=== PATIENT | male | born 1945 | race Caucasian/White ===

== ENCOUNTER 2017-01-28 09:47 | Inpatient (IN) | payer OTHER ==
[~2017-01-28] VITALS: Ht 172.7 cm; Wt 101.3 kg
[~2017-01-28 09:47] MED LIST: ADVAIR HFA120 INHALA IH; AMARYL2 MG PO; AMBIEN10 MG PO; AMLODIPINE BESY10 MG PO; BYSTOLIC10 MG PO; CLONIDINE HCL0.1 MG PO; CLONIDINE HCL0.2 MG PO; COUMADIN,JANTO2.5 MG PO; DOCUSATE SODIU100 MG PO; DUONEB 2.5-0.5 M3 ML AEROSOL; EFFEXOR75 MG PO; FINASTERIDE5 MG PO; FLOMAX0.4 MG PO; GLUCOPHAGE500 MG PO; HUMALOG MI100 UNIT/1 SC; HUMALOG100 UNIT/2 SC; LISINOPRIL10 MG PO; LISINOPRIL20 MG PO; LO-DOSE ASPIRIN81 M1 PO; LOPRESSOR50 MG PO; LYRICA100 MG PO; LYRICA75 MG PO; METFORMIN HCL500 MG PO; MORPHINE SULFAT30 M2 PO; NORVASC10 MG PO; OPANA ER20 MG PO; PANTOPRAZOLE SO40 MG PO; PERCOCET 10/1 TABLET PO; PLAVIX75 MG PO; PROSCAR5 MG PO; TYLENOL EXTRA500 MG PO; VENLAFAXINE HC150 M1 PO
[2017-01-28] MEDS ORDERED: CLONIDINE HCL0.2 MG PO (10:00)
[2017-01-28] MEDS ORDERED: LISINOPRIL20 MG PO (10:00)
[2017-01-28 10:44] LABS: ADD MIUA? YES; BILIRUBIN NEGATIVE; BLOOD MODERATE; COLOR YELLOW ((YELLOW)); GLUCOSE (STRIP) 150; KETONES NEGATIVE; LEUKOCYTES NEGATIVE; NITRITE NEGATIVE; PROTEIN (STRIP) >=500; SPECIFIC GRAVITY 1.015 (1.000-1.030); UROBILINOGEN 0.2 MG/DL (0.2-1.0)
[2017-01-28 10:48] LABS: BASOPHIL COUNT 0.1 K/uL (0-0.1); EOSINOPHIL (%) 0.3 % (0-5); HEMATOCRIT 41.4 % (38.0-50.0); IMMATURE GRANULOCYTE (%) 0.5 % (0.0-0.7); IMMATURE GRANULOCYTE COUNT 0.1 K/uL; INSTRUMENT ABS NEUTROPHIL CT 9.3 K/uL; LYMPHOCYTE COUNT 1.8 K/uL (1.0-2.8); MCHC 33.6 G/DL (30.0-36.0); MCV 89.2 FL (86-99); MEAN PLAT.VOLUME 10.6 uM^3 (9.0-12.4); MONOCYTE (%) 6.3 % (3-12); MONOCYTE COUNT 0.8 K/uL (0-0.8); NEUTROPHIL (%) 77.7 % (45-76); NEUTROPHIL COUNT 9.3 K/uL (1.8-6.4); PLATELET COUNT 256 K/uL (156-360); RBC DIS.WIDTH-CV 13.1 % (11.8-14.6); RBC DIS.WIDTH-SD 43.1 % (39-53); RED BLOOD COUNT 4.64 M/uL (4.00-5.50)
[2017-01-28 10:56] LABS: CHLORIDE 104 mEq/L (99-109); POTASSIUM 4.9 mEq/L (3.7-5.4); SODIUM 134 mEq/L (136-147)
[2017-01-28 10:58] LABS: BACTERIA NONE SEEN /HPF; CRYSTALS PRESENT; EPITHELIAL CELLS NONE SEEN /HPF; GLUCOSE 233 mg/dL (70-99); MUCUS NONE SEEN /LPF; RED BLOOD CELLS RARE /HPF (0-5); UCUL ADDED? NO; WHITE BLOOD CELLS NONE SEEN /HPF (0-5)
[2017-01-28 10:59] LABS: AMORPHOUS URATES CRYSTALS 3+; ANION GAP 11 MEQ/L (2-14)
[2017-01-28 11:00] LABS: TOTAL BILIRUBIN 0.6 mg/dL (0.0-1.0)
[2017-01-28 11:02] LABS: ALKALINE PHOSPHATASE 109 IU/L (3-129); GFR ESTIMATE (CALCULATED) 28 mL/min/
[2017-01-28 11:03] LABS: UREA NITROGEN (BUN) 38 mg/dL (9-23)
[2017-01-28 11:05] LABS: LIPASE 7 U/L (1.0-51.0)
[2017-01-28 11:08] LABS: TROP-I INTERPRETATION NEGATIVE; TROPONIN-I 0.02 ng/mL (0.0-0.30)
[2017-01-28 14:42] LABS: POINT-OF-CARE METER ID UU13113702
[2017-01-28] MEDS ORDERED: AMBIEN5 MG PO (15:37)
[2017-01-28] MEDS ORDERED: BYSTOLIC10 MG PO (15:38)
[2017-01-28] MEDS ORDERED: COLACE100 MG PO (15:41)
[2017-01-28] MEDS ORDERED: CATAPRES0.1 MG PO (15:42)
[2017-01-28 16:32] VITALS: BP 178/75
[2017-01-28 16:50] LABS: POINT-OF-CARE METER ID UU13113725
[2017-01-28 21:11] LABS: POINT-OF-CARE METER ID UU13113725
[2017-01-28 23:14] VITALS: BP 181/72
[2017-01-29 07:13] LABS: HEMATOCRIT 43.2 % (38.0-50.0); MCHC 33.1 G/DL (30.0-36.0); MCV 90.6 FL (86-99); MEAN PLAT.VOLUME 10.9 uM^3 (9.0-12.4); PLATELET COUNT 247 K/uL (156-360); RBC DIS.WIDTH-CV 13.2 % (11.8-14.6); RBC DIS.WIDTH-SD 43.8 % (39-53); RED BLOOD COUNT 4.77 M/uL (4.00-5.50); WHITE BLOOD COUNT 9.2 K/uL (4.1-10.2)
[2017-01-29 07:21] VITALS: BP 172/81
[2017-01-29 07:28] LABS: ANION GAP 10 MEQ/L (2-14); CHLORIDE 107 MEQ/L (99-109); GFR ESTIMATE (CALCULATED) 42 mL/min/; GLUCOSE 277 mg/dL (70-99); POTASSIUM 4.8 MEQ/L (3.7-5.4); SAMPLE HEMOLYSIS CHECK 0; SAMPLE ICTERIC CHECK 0; SAMPLE LIPEMIA CHECK 0; SODIUM 138 MEQ/L (136-147); UREA NITROGEN (BUN) 32 mg/dL (9-23)
[2017-01-29 15:44] VITALS: BP 164/78
[2017-01-29 23:55] VITALS: BP 151/63
[2017-01-30 07:52] VITALS: BP 178/80
[2017-01-30 15:00] VITALS: BP 143/64
[2017-01-30 23:11] VITALS: BP 128/53
[2017-01-31 06:55] LABS: HEMATOCRIT 37.8 % (38.0-50.0); MCH 30.5 PG (29.0-34.0); MCHC 33.1 G/DL (30.0-36.0); MCV 92.2 FL (86-99); MEAN PLAT.VOLUME 10.9 uM^3 (9.0-12.4); PLATELET COUNT 219 K/uL (156-360); RBC DIS.WIDTH-CV 13.2 % (11.8-14.6); WHITE BLOOD COUNT 6.7 K/uL (4.1-10.2)
[2017-01-31 07:24] LABS: ANION GAP 9 MEQ/L (2-14); CHLORIDE 107 MEQ/L (99-109); POTASSIUM 5.3 MEQ/L (3.7-5.4); SAMPLE HEMOLYSIS CHECK 0; SAMPLE ICTERIC CHECK 0; SAMPLE LIPEMIA CHECK 0; SODIUM 136 MEQ/L (136-147)
[2017-01-31 07:29] LABS: GFR ESTIMATE (CALCULATED) 42 mL/min/; GLUCOSE 296 mg/dL (70-99); UREA NITROGEN (BUN) 31 mg/dL (9-23)
[2017-01-31 08:00] VITALS: BP 196/81
== END 2017-01-31 14:08 | disposition home or self-care (01) | DRG 190 ==
LOC: EME 09:47 → EDOF 14:00 → 5EAST 14:00
PROVIDERS: Emergency Medicine; Family Medicine
DX: J44.0 Chronic obstructive pulmonary disease with (acute) lower respiratory infection (principal); J18.9 Pneumonia, unspecified organism; N17.9 Acute kidney failure, unspecified; F05 Delirium due to known physiological condition; J98.11 Atelectasis; E66.9 Obesity, unspecified; E11.21 Type 2 diabetes mellitus with diabetic nephropathy; E78.5 Hyperlipidemia, unspecified; E86.0 Dehydration; G89.29 Other chronic pain; I10 Essential (primary) hypertension; I25.10 Atherosclerotic heart disease of native coronary artery without angina pectoris; N40.0 Benign prostatic hyperplasia without lower urinary tract symptoms; R09.02 Hypoxemia; M19.90 Unspecified osteoarthritis, unspecified site; Z99.81 Dependence on supplemental oxygen; I73.9 Peripheral vascular disease, unspecified; Z68.33 Body mass index [BMI] 33.0-33.9, adult; Z79.4 Long term (current) use of insulin; Z79.82 Long term (current) use of aspirin; Z87.442 Personal history of urinary calculi; Z89.612 Acquired absence of left leg above knee; Z89.021 Acquired absence of right finger(s); Z87.891 Personal history of nicotine dependence
CPT/HCPCS: 71010; 71020; 80048; 80053; 81003; 82948; 83605; 83690; 84484; 85025; 85027; 87040; 93005; 94640; 94640 76; 94799; 99202; 99281; 99285; J0456; J0696; J1644; J1815; J7030; J7050